=== PATIENT | male | born 1940 | race Caucasian/White ===

== ENCOUNTER 2017-07-11 21:56 | Emergency (ER) | payer MEDICARE ==
[2017-07-11] MEDS ORDERED: ONDANSETRON HCL IV 4 MG/2 ML VIAL IVP ONE (22:15)
[2017-07-11] MEDS ORDERED: MORPHINE SULFATE 5 MG/ML PFS IVP ONE (22:15)
--- NOTE | 2017-07-11 22:22 | Emergency Department Record ---
History of Present Illness - General Chief Complaint: Back Pain/Injury Stated Complaint: BACK PAIN Time Seen by Provider: 07/11/17 22:15 Source: Patient Mode of Arrival: Ambulatory Limitations: No limitations - History of Present Illness Initial Comments: 76 yo male presents to ED to ED with a CC of right sided flank pain symptoms that began approximately 4 hours ago. Patient reports a history of kidney stones, but also reports he may have injured his back getting onto his tractor. Patient denies fevers, chills, or dysuria symptoms. Patient denies abdominal pain symptoms, nausea, or vomiting symptoms at home. MD Complaint: Back pain Onset/Timin -: Hour(s) Similar Symptoms Previously: Yes (not this bad before) Place: Home Radiation: Flank Severity: Moderate Severity scale (1-10): 9 Quality: Aching Consistency: Constant, Getting worse Improves With: Movement, Walking Worsens With: Movement Associated Symptoms: Denies other symptoms Treatments Prior to Arrival: NSAIDS - Related Data Home Medications Medication Instructions Recorded Confirmed Last Taken Tamsulosin HCl [Flomax] 0.4 mg PO DAILY 07/11/17 07/11/17 Unknown Previous Rx's Medication Instructions Recorded Hydrocodone/Acetaminophen [Hadley 1 each PO Q6H PRN #10 tablet 07/11/17 7.5-325 Tablet] Allergies Allergy/AdvReac Type Severity Reaction Status Date / Time No Known Drug Allergies Allergy Verified 11/29/14 15:53 Travel Screening - Travel/Exposure Within Last 30 Days Have you traveled within the last 30 days?: No - Travel Symptoms Symptom Screening: None Review of Systems Constitutional: Denies: Chills, Fever, Malaise, Night sweats Eyes: Denies: Eye discharge, Eye pain ENT: Denies: Congestion, Ear pain, Epistaxis Respiratory: Denies: Cough, Dyspnea Cardiovascular: Denies: Chest pain, Dyspnea on exertion Endocrine: Denies: Fatigue, Heat or cold intolerance Gastrointestinal: Denies: Abdominal pain, Nausea, Vomiting Genitourinary: Denies: Incontinence, Retention Musculoskeletal: Reports: Back pain. Denies: Arthralgia, Gout, Joint swelling Skin: Denies: Bruising, Change in color Neurological: Denies: Abnormal gait, Confusion, Headache, Seizure Psychiatric: Denies: Anxiety Hematological/Lymphatic: Denies: Anemia, Blood Clots Past Medical History - SOCIAL HISTORY Smoking Status: Former smoker Alcohol Use: None Drug Use: None - RESPIRATORY Hx Respiratory Disorders: Yes Hx COPD: Yes Hx Sleep Apnea: Yes (CPAP) - CARDIOVASCULAR Hx Cardio Disorders: Yes Hx Hypertension: Yes - NEURO Hx Neuro Disorders: No - GI Hx GI Disorders: Yes Hx Hiatal Hernia: Yes - Hx Genitourinary Disorders: Yes Hx Kidney Stones: Yes - ENDOCRINE Hx Endocrine Disorders: Yes Hx Thyroid Disease: Yes - MUSCULOSKELETAL Hx Musculoskeletal Disorders: Yes Hx Arthritis: Yes - PSYCH Hx Psych Problems: Yes Hx Anxiety: Yes - HEMATOLOGY/ONCOLOGY Hx Hematology/Oncology Disorders: No Family Medical History Any Significant Family History?: Yes Hx Cancer: Father, Mother Physical Exam - General General Appearance: Alert, Oriented x3, Cooperative, Moderate distress Limitations: No limitations - Head Head exam: Atraumatic, Normocephalic, Normal inspection Head exam detail: negative: Abrasion, Contusion, Zuñiga's sign, General tenderness, Hematoma, Laceration - Eye Eye exam: Normal appearance. negative: Conjunctival injection, Periorbital swelling, Periorbital tenderness, Scleral icterus - ENT Ear exam: negative: Auricular hematoma, Auricular trauma Nasal Exam: negative: Active bleeding, Discharge, Dried blood, Foreign body Mouth exam: negative: Drooling, Laceration, Muffled voice, Tongue elevation - Neck Neck exam: Normal inspection. negative: Meningismus, Tenderness - Respiratory Respiratory exam: Normal lung sounds bilaterally. negative: Rales, Respiratory distress, Rhonchi, Stridor - Cardiovascular Cardiovascular Exam: Regular rate, Normal rhythm, Normal heart sounds - GI/Abdominal GI/Abdominal exam: Soft. negative: Rebound, Rigid, Tenderness - Rectal Rectal exam: Deferred - exam: Deferred - Extremities Extremities exam: Normal inspection. negative: Calf tenderness, Pedal edema, Tenderness - Back Back exam: Reports: CVA tenderness (R). Denies: CVA tenderness (L) - Neurological Neurological exam: Alert, Normal gait, Oriented X3 - Psychiatric Psychiatric exam: Normal affect, Normal mood - Skin Skin exam: Normal color. negative: Abrasion Type of lesion: negative: abrasion Course Vital Signs 07/11/17 22:04 Temperature 97.6 F Pulse Rate [ 82 Pulse Ox Probe] Respiratory 20 Rate Blood Pressure 149/85 [Left Arm] Pulse Ox 94 L - Reevaluation(s) Reevaluation #1: 07/11/17 23:03 Laboratory studies reviewed, WBC 14.4, labs are otherwise grossly unremarkable for an acute process. UA appears contaminated, repeat UA ordered. Reevaluation #2: 07/11/17 23:20 Repeat UA reviewed and appears negative for infection/blood. CT imaging report is pending. Reevaluation #3: 07/11/17 23:25 CT Abdomen and Pelvis: No acute intra-abdominal process Multiple pulmonary nodules, consider outpatient CT chest Patient was updated on all results, reports that he is feeling much better. Patient appears stable for discharge at this time on Hadley as needed for his pain symptoms. Medical Decision Making - Lab Data Result diagrams: 07/11/17 22:25 07/11/17 22:25 Disposition Disposition: Discharge Clinical Impression: Flank pain, acute Disposition: Home, Self-Care Condition: (2) Stable Instructions: Low Back Strain (ED) Additional Instructions: Return to ED if your symptoms worsen or if you have any concerns. Hadley as directed for your pain symptoms. Follow-up with your family doctor in 3-5 days as directed. Discuss CT imaging of the chest for further evaluation of pulmonary nodules in the lungs. Prescriptions: Hydrocodone/Acetaminophen [Hadley 7.5-325 Tablet] 1 each PO Q6H PRN #10 tablet PRN Reason: Pain - Moderate (5-7) Forms: Patient Portal Access Time of Disposition: 23:27 Quality - Quality Measures Quality Measures: N/A - Blood Pressure Screening Does Patient Have Any of the Following: Active Dx of HTN Blood Pressure Classification: Normal BP Reading Systolic Measurement: 110 Diastolic Measurement: 62 Screening for High Blood Pressure: Patient Exclusion, Hx of HTN [[id number]]
[2017-07-11] MEDS ORDERED: 0.9 % SODIUM CHLORIDE 1000ML 500 ML IV SCH (22:30)
[2017-07-11 22:36] LABS: BASO % 1.5 % (0-6); EOS % 0.6 % (0-6); HEMOGLOBIN 12.3 gm/dl (14.0-18.0); LYMPH % 10.1 % (16-45); MEAN CELL VOLUME 91.7 fl (81-97); MEAN CORPUSCULAR HGB CONC 29.3 g/dl (32-36); MEAN PLATELET VOLUME 11.1 fl (7.4-10.4); MONO % 1.9 % (0-9); PLATELET COUNT 271 K/uL (130-400); RED BLOOD COUNT 4.58 M/uL (4.40-5.70); RED CELL DISTRIBUTION WIDTH 19.3 % (11.5-14.5); WHITE BLOOD COUNT W/O DIFF 14.4 K/uL (4.2-12.2)
[2017-07-11 22:42] LABS: MEAN CORPUSCULAR HEMOGLOBIN 26.8 pg (27-33); URINE APPEARANCE CLEAR; URINE BILIRUBIN NEGATIVE (NEGATIVE); URINE BLOOD NEGATIVE (NEGATIVE); URINE COLOR YELLOW; URINE GLUCOSE (UA) NEGATIVE (NEGATIVE); URINE KETONE NEGATIVE (NEGATIVE); URINE LEUKOCYTE ESTERASE TRACE (NEGATIVE); URINE NITRITE NEGATIVE (NEGATIVE); URINE PROTEIN NEGATIVE (NEGATIVE)
[2017-07-11 22:46] LABS: BLOOD UREA NITROGEN 19 mg/dL (8-23); CREATININE 0.8 mg/dL (0.7-1.2); EST GLOMERULAR FILTRATION RATE > 60 mL/min
[2017-07-11 22:47] LABS: TOTAL PROTEIN 6.9 g/dL (6.6-8.7)
[2017-07-11 22:48] LABS: GLUCOSE,RANDOM 97 mg/dL (74-109)
[2017-07-11 22:51] LABS: ALBUMIN 3.5 g/dL (4.0-5.0); ALT/SGPT 43 U/L (<41); AST/SGOT 43 U/L (10.0-50.0)
[2017-07-11 22:52] LABS: ALKALINE PHOSPHATASE 81 U/L (40-129)
[2017-07-11 22:57] LABS: URINE RBC 0 - 2 (NONE SEEN)
[2017-07-11 22:58] LABS: URINE BACTERIA 1+; URINE SQUAMOUS EPITHELIAL CELL 21 - 35 /hpf; URINE WBC 36 - 50 (0-2/hpf)
[2017-07-11 23:10] LABS: POIKILOCYTOSIS 1+; STOMATOCYTE 1+
[2017-07-11 23:16] LABS: URINE APPEARANCE CLEAR; URINE BILIRUBIN NEGATIVE (NEGATIVE); URINE BLOOD NEGATIVE (NEGATIVE); URINE COLOR YELLOW; URINE GLUCOSE (UA) NEGATIVE (NEGATIVE); URINE KETONE NEGATIVE (NEGATIVE); URINE LEUKOCYTE ESTERASE NEGATIVE (NEGATIVE); URINE NITRITE NEGATIVE (NEGATIVE); URINE PROTEIN NEGATIVE (NEGATIVE)
[2017-07-11] MEDS ORDERED: HYDROCODONE/APAP 7.5/325MG TABLET PO ONE (23:31)
--- NOTE | 2017-07-12 21:03 | CT SCAN REPORT ---
EXAM: CT SCAN ABDOMEN/PELVIS WO CONTRAST HISTORY: RIGHT-SIDED FLANK PAIN. TECHNIQUE: Thin-collimation helical CT examination of the abdomen and pelvis is performed without oral or intravenous contrast administration. Lack of oral and IV contrast utilization limits evaluation of the bowel and solid viscera, respectively. COMPARISON: None. FINDINGS: There is mild dependent atelectasis in each lung base. Minor linear scarring vs. atelectasis also noted in the anterolateral aspects of each lung base. There are several small noncalcified nodules within the right middle lobe , the largest of which is located medially measuring 4.9 mm. Additionally, there is a nodular opacity within the lingula measuring 10 x 6 mm. A subpleural nodule in the left lower lobe as seen on image #8 of 144 is also demonstrated measuring 6 mm. The lung bases are otherwise clear. No pleural or pericardial effusion. The heart is mildly enlarged. No suspicious focal abnormality demonstrated in the liver, spleen, pancreas, nor adrenal glands. The spleen does, however, appear mildly enlarged. There are a couple of calcified gallstones present without gallbladder wall thickening or pericholecystic fluid. No gross intrahepatic biliary ductal dilatation is seen. The common hepatic duct diameter of 13 mm is mildly prominent. Correlation with serum bilirubin and alkaline phosphatase levels is recommended. A tiny diverticulum arising from the second portion of the duodenum at the level of the ampulla is present. The kidneys are normal in size, position, and are smoothly marginated. There is a 3 mm nonobstructing calculus within the posterior mid right kidney and a couple of 2 mm nonobstructing calculi in the lower pole of the left kidney. A 1- 2 mm nonobstructing calculus is present in the mid left kidney. No other nephrolithiasis. No definite renal mass. The renal collecting systems are normal in caliber throughout and there is no ureteral calculus visualized. There is diffuse atherosclerosis. There is a short segment of mild ectasia of the infrarenal abdominal aorta measuring 2.8 cm in diameter. This begins approximately 2.5 cm distal to the right renal artery origin and has a length of approximately 5 cm. No pelvic mass, lymphadenopathy, or free pelvic fluid is seen. No intrinsic urinary bladder abnormality is demonstrated, though evaluation is somewhat limited by lack of distention. No bowel dilatation nor bowel wall thickening. There is mild diverticulosis of the distal colon without evidence of diverticulitis. The appendix is visualized and normal in appearance. The abdominal wall is intact. No lytic or blastic bone lesion. There are degenerative changes of the visualized spine. IMPRESSION: 1. NO CONVINCING CT EVIDENCE OF AN ACUTE INTRAABDOMINAL/INTRAPELVIC PROCESS. 2. BILATERAL NEPHROLITHIASIS WITHOUT OBSTRUCTIVE UROPATHY. 3. CHOLELITHIASIS WITHOUT EVIDENCE OF ACUTE CHOLECYSTITIS. MINOR PROMINENCE OF THE COMMON HEPATIC/COMMON BILE DUCT WITHOUT GROSS INTRAHEPATIC BILIARY DUCTAL DILATATION NOR DISTAL OBSTRUCTING LESION. CORRELATION WITH SERUM BILIRUBIN AND ALKALINE PHOSPHATASE LEVELS MAY BE OF BENEFIT. 4. MILD COLONIC DIVERTICULOSIS WITHOUT EVIDENCE OF DIVERTICULITIS. 5. BILATERAL LUNG BASE NODULES, THE LARGEST OF WHICH MEASURES 10 X 6 MM WITHIN THE LINGULA. COMPARISON TO PRIOR EXAMINATIONS, IF ANY EXIST, IS RECOMMENDED. IF NONE EXIST, CONSIDERATION TO DEDICATED CT CHEST EXAMINATION TO EVALUATE THE REMAINDER OF THE LUNGS IS RECOMMENDED. JOB NUMBER: [id number] MTDD
== END 2017-07-11 23:40 | disposition home or self-care (01) ==
LOC: ER 21:56
DX: M54.5 Low back pain (principal); R10.31 Right lower quadrant pain; J44.9 Chronic obstructive pulmonary disease, unspecified; I10 Essential (primary) hypertension; Z87.891 Personal history of nicotine dependence
CPT/HCPCS: 99284 ×2; 96374; 96375; 80053; 81001; 81003; 85027; 74176; J2405; J2270; J7030